=== PATIENT | female | born 1995 | race African-American/Black ===

== ENCOUNTER 2018-02-07 20:13 | Emergency (ER) | payer OTHER ==
[2018-02-07] MEDS ORDERED: NS 1,000 ML IV ONE ×2 (21:27→22:29)
[2018-02-07] MEDS ORDERED: ONDANSETRON 4 MG/2 ML VIAL IVP ONE (21:27)
[2018-02-07 21:43] LABS: PLATELET COUNT 281 10^3/uL (150-400)
--- NOTE | 2018-02-07 22:36 | EDPHY ---
H & P Stated Complaint: NVD-LLQ pain - Personal History LMP (Females 10-55): Now Current Tetanus Diphtheria and Acellular Pertussis (TDAP): Yes - Medical/Surgical History Hx Asthma: Yes Hx Chronic Respiratory Disease: No Hx Diabetes: No Hx Cardiac Disease: No Hx Renal Disease: No Hx Cirrhosis: No Hx Alcoholism: No Hx HIV/AIDS: No Hx Splenectomy or Spleen Trauma: No Other PMH: asthma - Social History Smoking Status: Light smoker <Raciel Villarreal - Last Filed: 02/07/18 22:36> - Social History Alcohol Use: None Drug Use: None <Bekah Werner - Last Filed: 02/08/18 15:50> Time Seen by Provider: 02/07/18 20:54 HPI/ROS: CHIEF COMPLAINT: Vomiting, diarrhea HISTORY OF PRESENT ILLNESS: 22-year-old female presents to the emergency department by private vehicle with 3 episodes of vomiting and 5 or 6 episodes of watery diarrhea. No fevers or chills. She has some mild diffuse abdominal cramping. No known ill contacts. No recent travel. No URI symptoms. No chest pain or difficulty breathing. No back pain. No urinary symptoms. She denies . She has irregular periods. REVIEW OF SYSTEMS: Constitutional: No fever, no chills. Eyes: No double or blurry vision. ENT: No sore throat. Respiratory: No cough, no shortness of breath. Cardiac: No chest pain. Gastrointestinal: As above. Genitourinary: No dysuria. Musculoskeletal: No neck or back pain. Skin: No rashes. Neurological: No headache. (Bekah Werner) - Social History Additional Social History: Student at [employer] (Bekah Werner) - Physical Exam Exam: General Appearance: Alert, no distress. Vital signs are stable. Eyes: Pupils equal and round. Extraocular motions are all intact. ENT: Mouth: Mucous membranes moist. Respiratory: No wheezing, rhonchi, or rales, lungs are clear to auscultation. Cardiovascular: Regular rate and rhythm. Gastrointestinal: Abdomen is soft and nontender, no masses, no rebound or guarding, bowel sounds normal. No CVA tenderness bilaterally. Neurological: Alert and oriented x 3, cranial nerves II through XII grossly intact Skin: Warm and dry, no rashes. Musculoskeletal: Nontender to palpate along the cervical, thoracic or lumbar spine. Neck is supple. Extremities: Full range of motion and no peripheral edema. Psychiatric: Patient is oriented X 3, there is no agitation. (Bekah Werner) Constitutional: Initial Vital Signs Temperature (C) 37 C 02/07/18 20:16 Heart Rate 84 02/07/18 20:16 Respiratory Rate 16 02/07/18 20:16 Blood Pressure 105/74 02/07/18 20:16 O2 Sat (%) 96 02/07/18 20:16 O2 Delivery Mode Room Air Allergies/Adverse Reactions: Penicillins Allergy (Verified 02/07/18 20:15) Home Medications: Medication Instructions Recorded Albuterol 02/07/18 Medical Decision Making <Raciel Villarreal - Last Filed: 02/07/18 22:36> <Bekah Werner - Last Filed: 02/08/18 15:50> ED Course/Re-evaluation: I evaluated this patient with Bekah. This patient has had a clear liquid trial and she tolerates liquids well and is doing quite well on no longer feels nauseated. She has urinated is no longer dehydrated. We will discharge her with instructions. (Raciel Villarreal) 22-year-old female presents with vomiting and diarrhea. She had an IV established. Laboratory studies were unremarkable. She was given IV Zofran and IV normal saline. She was feeling better. She was tolerating p.o. Fluids and is comfortable being discharged home. I do not think this patient has an acute abdomen. I do not think imaging studies are indicated. She was instructed to return if she developed fever, worsening abdominal pain, vomiting, or if she felt worse in any way. (Bekah Werner) Differential Diagnosis: Including but not limited to viral gastroenteritis, dehydration, electrolyte abnormality, acute appendicitis, ovarian cysts, urinary tract infection, pyelonephritis (Bekah Werner) - Data Points Laboratory Results: Laboratory Results 02/07/18 21:30 02/07/18 21:30 Medications Given: Discontinued Medications Sodium Chloride (Ns) 1,000 mls @ 0 mls/hr IV ONCE ONE PRN Reason: Wide Open Stop: 02/07/18 21:28 Last Admin: 02/07/18 21:32 Dose: 1,000 mls Sodium Chloride (Ns) 1,000 mls @ 0 mls/hr IV ONCE ONE PRN Reason: Wide Open Stop: 02/07/18 22:30 Last Admin: 02/07/18 22:45 Dose: Not Given Ondansetron HCl (Zofran) 4 mg IVP EDNOW ONE Stop: 02/07/18 21:28 Last Admin: 02/07/18 21:35 Dose: 4 mg Departure <Raciel Villarreal - Last Filed: 02/07/18 22:36> <Bekah Werner - Last Filed: 02/08/18 15:50> - Departure Disposition: Home, Routine, Self-Care Clinical Impression: Acute gastroenteritis, Dehydration Condition: Good Instructions: Dehydration (ED), Gastroenteritis (ED), Abdominal Pain (ED) Referrals: NONE *PRIMARY CARE P,. [Primary Care Provider] - As per Instructions
[2018-02-07 22:48] VITALS: BP 110/78
== END 2018-02-07 22:48 | disposition home or self-care (01) ==
DX: K52.9 Noninfective gastroenteritis and colitis, unspecified (principal); E86.0 Dehydration; J45.909 Unspecified asthma, uncomplicated; F17.200 Nicotine dependence, unspecified, uncomplicated
CPT/HCPCS: 96374; J2405